=== PATIENT | female | born 1965 | race Caucasian/White ===

== ENCOUNTER 2018-11-30 07:53 | Day surgery (SDC) | payer OTHER ==
[2018-11-30] MEDS ORDERED: LIDOCAINE 4% SOLUTION 50 ML BTL (08:48)
[2018-11-30] MEDS ORDERED: FENTAnyl 50 MCG/ML VIAL (09:20)
[2018-11-30] MEDS ORDERED: MIDAZOLAM 1 MG/ML 2 ML INJ ×2 (09:20)
== END 2018-11-30 09:54 | disposition home or self-care (01) ==
LOC: GIL 07:53
DX: K29.00 Acute gastritis without bleeding (principal)
CPT/HCPCS: 43239; 88305; 88312